=== PATIENT | male | born 1935 | race Caucasian/White ===

== ENCOUNTER 2017-01-03 07:33 | Day surgery (SDC) | payer MEDICARE, BC ==
[2017-01-03] MEDS ORDERED: Midazolam 1 MG/ML 2 ML SDV IV ONE (07:34)
[2017-01-03] MEDS ORDERED: fentaNYL 100 MCG/2 ML SDV IV ONE (07:34)
[2017-01-03] MEDS ORDERED: Ondansetron 4 MG/2 ML SDV IV ONE (07:34)
[2017-01-03] MEDS ORDERED: Lactated Ringers 1,000 ML IV ONE (07:34)
[2017-01-03] MEDS ORDERED: Propofol 200 MG/20 ML SDV IV ONE (07:34)
[2017-01-03] MEDS ORDERED: Glycopyrrolate 0.2 MG/ML 2 ML SDV IV ONE (07:34)
[2017-01-03] MEDS ORDERED: Lidocaine 1% 30 ML SDV INJECT ONE ×2 (07:34→10:17)
[2017-01-03] MEDS ORDERED: Lactated Ringers 1,000 ML IV SCH (08:45)
[2017-01-03] MEDS ORDERED: Lidocaine 1% 30 ML SDV ONE (09:07)
[2017-01-03] MEDS ORDERED: Acetaminophen/HYDROcodone 325-5 MG Tab PO ONE (11:19)
--- NOTE | 2017-01-03 12:15 | OR ---
DATE: 01/03/2017 PREOPERATIVE DIAGNOSIS: Recurrent incisional hernia, right side. POSTOPERATIVE DIAGNOSIS: Recurrent incisional hernia, right side. PROCEDURES: Open repair of recurrent incisional hernia. ANESTHESIA: General. ESTIMATED BLOOD LOSS: None. SPECIMEN: Hernia contents. INDICATION FOR PROCEDURE: This 81-year-old male had a right-sided ventral hernia repair seemed to be a spigelian hernia type repair as it is above the inguinal canal and it seems to be in the lateral portion of this incision. It is palpable and moderately tender. PROCEDURE IN DETAIL: After adequate preparation, an incision was made over the right lower quadrant incision and carried out laterally. This was then dissected down to the external oblique which was opened in direction of its fibers. This exposed a hernia in the posterior rectus sheath area. This was easily dissected free from the surrounding tissues and the hernia sac was opened. The hernia sac currently did not contain any bowel or intraabdominal contents. The hernia sac itself was reduced, and interrupted #1 Prolene sutures were used to close the defect in a transverse fashion. He does have still quite thin muscle layers secondary to his age I guess, and this seemed adequate to close the defect but he does have thin tissues. The external oblique was then closed in a running fashion with Vicryl over the hernia repair. The subcutaneous layer was closed with 2-0 Vicryl and Monocryl were used for the skin. [facility] /[id number]
[2017-01-03] MEDS ORDERED: Sodium Chloride 0.9% 10 ML Syringe FLUSH PRN (13:06)
[2017-01-03] MEDS ORDERED: Meperidine PF 50 MG/ML Syringe IM PRN (14:36)
--- NOTE | 2017-01-03 15:12 | PCM.SN ---
- Free Text/Narrative Note: Will need to keep this patient in the hospital for pain control at least overnight. PO hydrocodone not adequate for pain. Will add IM demerol. Cont PO intake and assist with ambulation.
[2017-01-03] MEDS: Acetaminophen/HYDROcodone 325-10 MG Tab PO PRN (18:28)
[2017-01-04] MEDS: Acetaminophen/HYDROcodone 325-10 MG Tab PO PRN (05:27)
[2017-01-04 08:00] VITALS: BP 122/70
--- NOTE | 2017-01-04 13:03 | PCM.SN ---
- Free Text/Narrative Note: Post op. Pt discharged home this AM after discharge criteria met. no anesthesia concern noted.
--- NOTE | 2017-01-04 13:38 | PCM.SN ---
- Free Text/Narrative Note: Patient feels much better this AM and only rates his pain at 2/10. Wound OK. PO adequate. Ambulates well, Can DC to and will FU as needed. Hydrocodon #30 given for pain.
--- NOTE | 2017-02-04 11:39 | EKG ---
01/03/2017 - GATITO SANDHU - FINDINGS: I reviewed the EKG and agree with the machine's reading. [facility] /[id number]
== END 2017-01-04 10:35 | disposition home or self-care (01) ==
LOC: DL.SDS 07:33 → EDSTATUS 09:00 → DL.MS 13:00 → DL.SDS 01-04 10:35
PROVIDERS: ATTEND Surgery
DX: K43.2 Incisional hernia without obstruction or gangrene (principal)
CPT/HCPCS: 00832; 49565; 93005; 93010; A9270; J2175; J7120; 88302; J2250; J2405; J2704; J3010; J3490

== ENCOUNTER 2018-11-22 09:20 | Emergency (ER) | payer MEDICARE, BC ==
--- NOTE | 2018-11-22 09:50 | EDM.PDOC ---
ED HPI GENERAL MEDICAL PROBLEM - General Chief Complaint: Skin Complaint Stated Complaint: RASH ON HAND Time Seen by Provider: 11/22/18 09:49 Source of Information: Reports: Patient, Old Records, RN, RN Notes Reviewed History Limitations: Reports: No Limitations - History of Present Illness INITIAL COMMENTS - FREE TEXT/NARRATIVE: Pt presents to ER for evaluation of rash to bilateral hands and scrotum. Pt states symptoms initially started three months ago, states they are worse today so he seeks treatment. Pt states he has been using multiple creams at home to help with symptoms. Onset: Unknown/Unsure Duration: Chronic Location: Reports: Upper Extremity, Left, Upper Extremity, Right Quality: Reports: Other (Denies pain) Severity: Moderate Improves with: Reports: None Worsens with: Reports: None Associated Symptoms: Reports: No Other Symptoms - Related Data Allergies Allergy/AdvReac Type Severity Reaction Status Date / Time No Known Allergies Allergy Verified 11/22/18 09:51 Home Meds: Home Meds Hydrocodone/Acetaminophen [Hydrocodon-Acetaminophn 10-325] 1 tab PO Q6HR PRN [History] Lisinopril 1 tab PO DAILY 01/07/15 [History] amLODIPine Besylate [Amlodipine Besylate] 1 tab PO DAILY 01/07/15 [History] Ascorbic Acid 500 mg PO DAILY 09/21/16 [History] Aspirin 162.5 mg PO DAILY 09/21/16 [History] Cholecalciferol (Vitamin D3) [Vitamin D3] 1,000 unit PO DAILY 09/21/16 [History] Flaxseed Oil [Flaxseed] 1,000 mg PO BID 09/21/16 [History] Garlic 1,000 mg PO DAILY 09/21/16 [History] Omeprazole 20 mg PO DAILY 09/21/16 [History] Terazosin HCl [Terazosin] 10 mg PO DAILY 09/21/16 [History] atorvaSTATin [Lipitor] 1 tab PO DAILY 12/31/16 [History] Past Medical History HEENT History: Reports: None Cardiovascular History: Reports: High Cholesterol, Hypertension Respiratory History: Reports: None Gastrointestinal History: Reports: Hiatal Hernia, Other (See Below) Other Gastrointestinal History: r) INGUINAL HERNIA Musculoskeletal History: Reports: Arthritis, Back Pain, Chronic Neurological History: Reports: None Psychiatric History: Reports: None Endocrine/Metabolic History: Reports: None Hematologic History: Reports: None Immunologic History: Reports: None Oncologic (Cancer) History: Reports: None Dermatologic History: Reports: None - Infectious Disease History Infectious Disease History: Reports: Other (See Below) Other Infectious Disease History: UNKNOWN - Past Surgical History Head Surgeries/Procedures: Reports: None HEENT Surgical History: Reports: Adenoidectomy, Tonsillectomy Cardiovascular Surgical History: Reports: None GI Surgical History: Reports: Hernia, Inguinal, Hernia Repair/Other Other Female Surgeries/Procedures: SOME KIND OF PROSTATE PROCEDURE Male Surgical History: Reports: Other (See Below) Social & Family History - Family History Family Medical History: Noncontributory - Caffeine Use Caffeine Use: Reports: Soda, Tea Caffeine Use Comment: 12OZ - Living Situation & Occupation Occupation: Retired ED ROS GENERAL - Review of Systems Review Of Systems: ROS reveals no pertinent complaints other than HPI. ED EXAM, SKIN/RASH Exam: See Below Exam Limited By: No Limitations General Appearance: Alert, No Apparent Distress Eye Exam: Bilateral Eye: Normal Inspection Nose: Normal Inspection Throat/Mouth: Normal Inspection Head: Atraumatic, Normocephalic Neck: Normal Inspection Respiratory/Chest: No Respiratory Distress Extremities: Normal Range of Motion, Normal Capillary Refill Neurological: Alert, No Motor/Sensory Deficits Psychiatric: Normal Mood Skin: Warm, Dry, Rash Location, Skin: Neck, Back, Other (B/L dorsal hands, and scrotum) Characteristics: Other (also has tiny petechial dots at the B/L lower legs and proximal medial thighs consistent with vasculitis, and appears different than the rash on the hands, neck/upper back, and scrotum.) Associated features: No: Warmth, Tenderness, Swelling, Scaling, Inflammation, Crusting, Weeping Course - Vital Signs Last Recorded V/S: Last Vital Signs Temp 99.4 F 11/22/18 09:52 Pulse 72 11/22/18 09:52 Resp 18 11/22/18 09:52 BP 159/79 H 11/22/18 09:52 Pulse Ox 95 11/22/18 09:52 - Orders/Labs/Meds Orders: Active Orders 24 hr Category Date Time Status MRSA CULTURE [MREF] Stat Lab 11/22/18 10:10 Received Departure - Departure Time of Disposition: 10:21 Disposition: Home, Self-Care 01 Condition: Good Clinical Impression: Dermatitis due to unknown cause, Vasculitis limited to skin - Discharge Information *PRESCRIPTION DRUG MONITORING PROGRAM REVIEWED*: No *COPY OF PRESCRIPTION DRUG MONITORING REPORT IN PATIENT TRINA: No Instructions: Rash Forms: ED Department Discharge Additional Instructions: Rx: Prednisone 20mg Rx: Doxycycline 100mg Rx: Zyrtec 10mg Rx: Lotrisone Cream Follow up in clinic in 5 to 7 days. Choose a new primary care provider if you are unhappy with your current doctor. - My Orders Last 24 Hours: My Active Orders 11/22/18 10:10 MRSA CULTURE [MREF] Stat - Assessment/Plan Last 24 Hours: My Active Orders 11/22/18 10:10 MRSA CULTURE [MREF] Stat
[2018-11-22 10:46] VITALS: BP 138/92; PULSE 72
== END 2018-11-22 10:47 | disposition home or self-care (01) ==
LOC: DL.ED 09:20
DX: L30.9 Dermatitis, unspecified (principal); L95.9 Vasculitis limited to the skin, unspecified; I10 Essential (primary) hypertension; E78.00 Pure hypercholesterolemia, unspecified; Z79.82 Long term (current) use of aspirin; Z79.899 Other long term (current) drug therapy
CPT/HCPCS: 87070; 99283

== ENCOUNTER 2019-04-17 08:26 | Emergency (ER) | payer MEDICARE, BC ==
[2019-04-17 08:35] VITALS: BP 150/81; PULSE 73
--- NOTE | 2019-04-17 09:06 | EDM.PDOC ---
<Jonatan Caro - Last Filed: 04/17/19 09:01> ED HPI GENERAL MEDICAL PROBLEM - General Chief Complaint: ENT Problem Stated Complaint: EAR HURTS Time Seen by Provider: 04/17/19 09:01 Source of Information: Reports: Patient, RN, RN Notes Reviewed History Limitations: Reports: No Limitations - History of Present Illness INITIAL COMMENTS - FREE TEXT/NARRATIVE: 83 year old male presents to the ER with complaints of right sided hearing loss and pain. He states his hearing has been diminishing on the right side for 2 weeks now but this morning he cannot hear at all and pain is 10/10. He has tried to clean it out himself and noticed some blood when attempting to clean it. He denies fever, headaches, sinus tenderness, or any other symptoms. Patient has not been to the clinic. Onset: Today Duration: Constant Location: Reports: Head (rigth ear) Quality: Reports: Ache Severity: Mild Improves with: Reports: None Worsens with: Reports: None Associated Symptoms: Reports: No Other Symptoms right ear Pain Score (Numeric/FACES): 10 - Related Data Allergies Allergy/AdvReac Type Severity Reaction Status Date / Time No Known Allergies Allergy Verified 04/17/19 08:42 Home Meds: Home Meds Hydrocodone/Acetaminophen [Hydrocodon-Acetaminophn 10-325] 1 tab PO Q6HR PRN [History] Lisinopril 1 tab PO DAILY 01/07/15 [History] amLODIPine Besylate [Amlodipine Besylate] 1 tab PO DAILY 01/07/15 [History] Ascorbic Acid 500 mg PO DAILY 09/21/16 [History] Aspirin 162.5 mg PO DAILY 09/21/16 [History] Cholecalciferol (Vitamin D3) [Vitamin D3] 1,000 unit PO DAILY 09/21/16 [History] Flaxseed Oil [Flaxseed] 1,000 mg PO BID 09/21/16 [History] Garlic 1,000 mg PO DAILY 09/21/16 [History] Omeprazole 20 mg PO DAILY 09/21/16 [History] Terazosin HCl [Terazosin] 10 mg PO DAILY 09/21/16 [History] atorvaSTATin [Lipitor] 1 tab PO DAILY 12/31/16 [History] Past Medical History HEENT History: Reports: None Cardiovascular History: Reports: High Cholesterol, Hypertension Respiratory History: Reports: None Gastrointestinal History: Reports: Hiatal Hernia, Other (See Below) Other Gastrointestinal History: r) INGUINAL HERNIA Musculoskeletal History: Reports: Arthritis, Back Pain, Chronic Neurological History: Reports: None Psychiatric History: Reports: None Endocrine/Metabolic History: Reports: None Hematologic History: Reports: None Immunologic History: Reports: None Oncologic (Cancer) History: Reports: None Dermatologic History: Reports: None - Infectious Disease History Infectious Disease History: Reports: Other (See Below) Other Infectious Disease History: UNKNOWN - Past Surgical History Head Surgeries/Procedures: Reports: None HEENT Surgical History: Reports: Adenoidectomy, Tonsillectomy Cardiovascular Surgical History: Reports: None GI Surgical History: Reports: Hernia, Inguinal, Hernia Repair/Other Male Surgical History: Reports: Other (See Below) Social & Family History - Family History Family Medical History: Noncontributory - Tobacco Use Smoking Status *Q: Never Smoker Second Hand Smoke Exposure: No - Caffeine Use Caffeine Use: Reports: Coffee Caffeine Use Comment: 12OZ - Recreational Drug Use Recreational Drug Use: No - Living Situation & Occupation Occupation: Retired ED ROS ENT - Review of Systems Review Of Systems: Comprehensive ROS is negative, except as noted in HPI. ED EXAM, ENT - Physical Exam Exam: See Below Exam Limited By: No Limitations General Appearance: Alert, WD/WN, No Apparent Distress Eye Exam: Bilateral Eye: EOMI, Normal Inspection, PERRL Ears: Normal External Exam, Hearing Loss (bilateral), Canal Discharge (right sided), Other (right sided tragus tenderness with palpation). No: TM Perforation, Cerumen Impaction Nose: Normal Inspection, Normal Mucousa, No Blood Mouth/Throat: Normal Inspection, Normal Gums, Normal Lips, Normal Oropharynx, Normal Teeth Head: Atraumatic, Normocephalic Neck: Normal Inspection, Supple, Non-Tender, Full Range of Motion Respiratory/Chest: No Respiratory Distress, Lungs Clear, Normal Breath Sounds, No Accessory Muscle Use, Chest Non-Tender Cardiovascular: Normal Peripheral Pulses, Regular Rate, Rhythm, No Edema, No Gallop, No JVD, No Murmur, No Rub Course - Vital Signs Last Recorded V/S: Last Vital Signs Temp 37.4 C 04/17/19 08:33 Pulse 73 04/17/19 08:33 Resp 18 04/17/19 08:33 BP 150/81 H 04/17/19 08:33 Pulse Ox 96 04/17/19 08:33 Departure - Departure Time of Disposition: 09:07 Disposition: Home, Self-Care 01 Condition: Good Clinical Impression: Otitis externa Qualifiers: Otitis externa type: unspecified type Chronicity: acute Laterality: right Qualified Code(s): H60.501 - Unspecified acute noninfective otitis externa, right ear - Discharge Information *PRESCRIPTION DRUG MONITORING PROGRAM REVIEWED*: Yes *COPY OF PRESCRIPTION DRUG MONITORING REPORT IN PATIENT TRINA: Yes Instructions: Otitis Externa, [id number], Ear Drops, Adult, [id number] Forms: ED Department Discharge Additional Instructions: Rx: Cipro/Dex Use the ear drops as prescribed for relief of ear infection. Use ibuprofen and tylenol for pain and inflammation. If symptoms do not resolve or pain gets worse , follow-up in clinic with primary care provider. Sepsis Event Note - Evaluation Sepsis Screening Result: No Definite Risk - Focused Exam Vital Signs: Vital Signs Temp Pulse Resp BP Pulse Ox 04/17/19 08:33 37.4 C 73 18 150/81 H 96 Date Exam was Performed: 04/17/19 Time Exam was Performed: 09:01 <Bob Parsons - Last Filed: 04/17/19 09:11> Course - Re-Assessments/Exams Free Text/Narrative Re-Assessment/Exam: 04/17/19 09:11 I have examined the patient. I have discussed findings and treatment plan with the PA student. I agree with the assessment and plan in the following students note. Sepsis Event Note - Focused Exam Date Exam was Performed: 04/17/19 Time Exam was Performed: 09:11
== END 2019-04-17 09:28 | disposition home or self-care (01) ==
LOC: DL.ED 08:26
DX: H60.501 Unspecified acute noninfective otitis externa, right ear (principal); E78.00 Pure hypercholesterolemia, unspecified; I10 Essential (primary) hypertension; M19.90 Unspecified osteoarthritis, unspecified site; Z79.82 Long term (current) use of aspirin; Z79.899 Other long term (current) drug therapy
CPT/HCPCS: 99283

== ENCOUNTER 2019-04-19 10:21 | Emergency (ER) | payer MEDICARE, BC ==
[2019-04-19 10:32] VITALS: BP 172/91; PULSE 86
--- NOTE | 2019-04-19 10:52 | EDM.PDOC ---
ED HPI GENERAL MEDICAL PROBLEM - General Chief Complaint: ENT Problem Stated Complaint: RIGHT EAR PLUGGED Time Seen by Provider: 04/19/19 10:45 Source of Information: Reports: Patient History Limitations: Reports: No Limitations - History of Present Illness INITIAL COMMENTS - FREE TEXT/NARRATIVE: This 83 yo male patient reports to the ED with increased difficulties hearing out of his right ear. The patient was seen in the ED 2 days ago and given a prescription for an antibiotic with steroids in it. The patient did not fill the prescription due to the cost of the medication. The patient continues to state that the only thing that will make him feel better is hydrocodone. The patient was advised the pain medication will only cover up the symptoms, but not treat the problem. The patient continued to request pain medications. Onset: Gradual Duration: Day(s):, Constant Location: Reports: Head (right ear drainage due to otitis externa) Quality: Reports: Dull Severity: Moderate Improves with: Reports: None Worsens with: Reports: None Context: Reports: Other Associated Symptoms: Reports: No Other Symptoms - Related Data Allergies Allergy/AdvReac Type Severity Reaction Status Date / Time No Known Allergies Allergy Verified 04/17/19 08:42 Home Meds: Home Meds Hydrocodone/Acetaminophen [Hydrocodon-Acetaminophn 10-325] 1 tab PO Q6HR PRN [History] Lisinopril 1 tab PO DAILY 01/07/15 [History] amLODIPine Besylate [Amlodipine Besylate] 1 tab PO DAILY 01/07/15 [History] Ascorbic Acid 500 mg PO DAILY 09/21/16 [History] Aspirin 162.5 mg PO DAILY 09/21/16 [History] Cholecalciferol (Vitamin D3) [Vitamin D3] 1,000 unit PO DAILY 09/21/16 [History] Flaxseed Oil [Flaxseed] 1,000 mg PO BID 09/21/16 [History] Garlic 1,000 mg PO DAILY 09/21/16 [History] Omeprazole 20 mg PO DAILY 09/21/16 [History] Terazosin HCl [Terazosin] 10 mg PO DAILY 09/21/16 [History] atorvaSTATin [Lipitor] 1 tab PO DAILY 12/31/16 [History] Past Medical History HEENT History: Reports: Impaired Vision Cardiovascular History: Reports: High Cholesterol, Hypertension Respiratory History: Reports: None Gastrointestinal History: Reports: Hiatal Hernia, Other (See Below) Other Gastrointestinal History: r) INGUINAL HERNIA Musculoskeletal History: Reports: Arthritis, Back Pain, Chronic Neurological History: Reports: None Psychiatric History: Reports: None Endocrine/Metabolic History: Reports: None Hematologic History: Reports: None Immunologic History: Reports: None Oncologic (Cancer) History: Reports: None Dermatologic History: Reports: None - Infectious Disease History Infectious Disease History: Reports: Other (See Below) Other Infectious Disease History: UNKNOWN - Past Surgical History Head Surgeries/Procedures: Reports: None HEENT Surgical History: Reports: Adenoidectomy, Tonsillectomy Cardiovascular Surgical History: Reports: None GI Surgical History: Reports: Hernia, Inguinal, Hernia Repair/Other Male Surgical History: Reports: Other (See Below) Social & Family History - Family History Family Medical History: Noncontributory - Tobacco Use Smoking Status *Q: Never Smoker Second Hand Smoke Exposure: No - Caffeine Use Caffeine Use: Reports: None Caffeine Use Comment: 12OZ - Recreational Drug Use Recreational Drug Use: No - Living Situation & Occupation Occupation: Retired ED ROS ENT - Review of Systems Review Of Systems: Comprehensive ROS is negative, except as noted in HPI. ED EXAM, ENT - Physical Exam Exam: See Below Exam Limited By: No Limitations General Appearance: Alert, WD/WN, Anxious, Mild Distress Eye Exam: Bilateral Eye: EOMI, Normal Inspection, PERRL Ears: Normal TMs, Canal Discharge (right sided), Canal Swelling (right side) Nose: Normal Inspection, Normal Mucousa, No Blood Mouth/Throat: Normal Inspection, Normal Gums, Normal Lips, Normal Oropharynx, Normal Teeth Head: Atraumatic, Normocephalic Neck: Normal Inspection, Supple, Non-Tender, Full Range of Motion Respiratory/Chest: No Respiratory Distress, Lungs Clear, Normal Breath Sounds, No Accessory Muscle Use, Chest Non-Tender Cardiovascular: Normal Peripheral Pulses, Regular Rate, Rhythm, No Edema, No Gallop, No JVD, No Murmur, No Rub GI/Abdominal: Normal Bowel Sounds, Soft, Non-Tender, No Organomegaly, No Distention, No Abnormal Bruit, No Mass (Male) Exam: Deferred Rectal (Males) Exam: Deferred Back: Normal Inspection, Full Range of Motion Extremities: Normal Inspection, Normal Range of Motion, Non-Tender, No Pedal Edema, Normal Capillary Refill Neurological: Alert, Oriented, CN II-XII Intact, Normal Cognition, Normal Gait, Normal Reflexes, No Motor/Sensory Deficits Psychiatric: Normal Affect, Normal Mood Skin: Warm, Dry, Intact, Normal Color, No Rash Lymphatic: No Adenopathy Course - Vital Signs Last Recorded V/S: Last Vital Signs Temp 36.7 C 04/19/19 10:27 Pulse 86 04/19/19 10:27 Resp 16 04/19/19 10:27 BP 172/91 H 04/19/19 10:27 Pulse Ox 97 04/19/19 10:27 Departure - Departure Time of Disposition: 10:49 Disposition: Home, Self-Care 01 Condition: Fair Clinical Impression: Right otitis externa Qualifiers: Otitis externa type: diffuse Chronicity: acute Qualified Code(s): H60.311 - Diffuse otitis externa, right ear - Discharge Information *PRESCRIPTION DRUG MONITORING PROGRAM REVIEWED*: Not Applicable *COPY OF PRESCRIPTION DRUG MONITORING REPORT IN PATIENT TRINA: Not Applicable Instructions: Otitis Externa, [id number], Ear Drops, Adult, [id number] Forms: ED Department Discharge Care Plan Goals: The patient was advised of the examination results during the visit. The patient was encouraged to fill the prescription that was written for him two days ago. The patient reports that he could not afford the medication. The patient was encouraged to talk to his pharmacy in order to look for more affordable options. If the patient has any additional symptoms or concerns, the patient should either return to the emergency department or visit his primary care facility. Sepsis Event Note - Evaluation Sepsis Screening Result: No Definite Risk - Focused Exam Vital Signs: Vital Signs Temp Pulse Resp BP Pulse Ox 04/19/19 10:27 36.7 C 86 16 172/91 H 97 Date Exam was Performed: 04/19/19 Time Exam was Performed: 10:52
== END 2019-04-19 10:54 | disposition home or self-care (01) ==
LOC: DL.ED 10:21
DX: H60.311 Diffuse otitis externa, right ear (principal); I10 Essential (primary) hypertension; E78.00 Pure hypercholesterolemia, unspecified; Z79.82 Long term (current) use of aspirin; Z79.899 Other long term (current) drug therapy
CPT/HCPCS: 99282; 99283

== ENCOUNTER 2019-07-29 01:43 | Emergency (ER) | payer MEDICARE, BC ==
--- NOTE | 2019-07-29 02:03 | EDM.PDOC ---
ED HPI GENERAL MEDICAL PROBLEM - General Chief Complaint: General Stated Complaint: AMBULANCE Time Seen by Provider: 07/29/19 01:56 Source of Information: Reports: Patient, EMS History Limitations: Reports: No Limitations - History of Present Illness INITIAL COMMENTS - FREE TEXT/NARRATIVE: EMS arrived pt sitting in a chair c/o unable to get back up. pt states got up to pee then became light headed & dizzy and unable to balance so sat down quickly then crawl to bathroom. denies falling. denies vertigo. states he never any problem while he was taking hydrocodone which nobody is willing to give him. states he has been taking this for 18 years. states it helps the pain in his left nostril area which acts up everytime he eats and is unhappy nobody is willing to give him any. denies CP/SOB/CORONEL. - Related Data Allergies Allergy/AdvReac Type Severity Reaction Status Date / Time No Known Allergies Allergy Verified 07/29/19 02:05 Home Meds: Home Meds Hydrocodone/Acetaminophen [Hydrocodone-Acetamin 10-325 mg] 1 tab PO Q6HR PRN [History] Lisinopril 1 tab PO DAILY 01/07/15 [History] amLODIPine Besylate [Amlodipine Besylate] 1 tab PO DAILY 01/07/15 [History] Ascorbic Acid 500 mg PO DAILY 09/21/16 [History] Aspirin 162.5 mg PO DAILY 09/21/16 [History] Cholecalciferol (Vitamin D3) [Vitamin D3] 1,000 unit PO DAILY 09/21/16 [History] Flaxseed Oil [Flaxseed] 1,000 mg PO BID 09/21/16 [History] Garlic 1,000 mg PO DAILY 09/21/16 [History] Omeprazole 20 mg PO DAILY 09/21/16 [History] Terazosin HCl [Terazosin] 10 mg PO DAILY 09/21/16 [History] atorvaSTATin [Lipitor] 1 tab PO DAILY 12/31/16 [History] Past Medical History HEENT History: Reports: Impaired Vision Cardiovascular History: Reports: High Cholesterol, Hypertension Respiratory History: Reports: None Gastrointestinal History: Reports: Hiatal Hernia, Other (See Below) Other Gastrointestinal History: r) INGUINAL HERNIA Musculoskeletal History: Reports: Arthritis, Back Pain, Chronic Neurological History: Reports: None Psychiatric History: Reports: None Endocrine/Metabolic History: Reports: None Hematologic History: Reports: None Immunologic History: Reports: None Oncologic (Cancer) History: Reports: None Dermatologic History: Reports: None - Infectious Disease History Infectious Disease History: Reports: Other (See Below) Other Infectious Disease History: UNKNOWN - Past Surgical History Head Surgeries/Procedures: Reports: None HEENT Surgical History: Reports: Adenoidectomy, Tonsillectomy Cardiovascular Surgical History: Reports: None GI Surgical History: Reports: Hernia, Inguinal, Hernia Repair/Other Male Surgical History: Reports: Other (See Below) Social & Family History - Family History Family Medical History: Noncontributory - Caffeine Use Caffeine Use: Reports: None Caffeine Use Comment: 12OZ - Living Situation & Occupation Occupation: Retired ED ROS GENERAL - Review of Systems Review Of Systems: Comprehensive ROS is negative, except as noted in HPI. ED EXAM, GENERAL - Physical Exam Exam: See Below Exam Limited By: No Limitations General Appearance: Alert, WD/WN, No Apparent Distress, Other (talkative) Eye Exam: Bilateral Eye: PERRL (pupils ER @ 4mm) Ears: Hearing Grossly Normal Throat/Mouth: Normal Voice, No Airway Compromise Head: Atraumatic Neck: Non-Tender, Full Range of Motion Respiratory/Chest: No Respiratory Distress Cardiovascular: Regular Rate, Rhythm GI/Abdominal: Soft, Non-Tender Neurological: Alert, Oriented, Normal Cognition, No Motor/Sensory Deficits Psychiatric: Normal Affect, Normal Mood Skin Exam: Warm, Dry, Normal Color Lymphatic: No Adenopathy Course - Vital Signs Last Recorded V/S: Last Vital Signs Temp 36.1 C 07/29/19 02:21 Pulse 52 L 07/29/19 02:21 Resp 18 07/29/19 02:21 BP 172/90 H 07/29/19 02:21 Pulse Ox 95 07/29/19 02:21 Orthostatic Blood Pressure [ 197/99 Standing] Orthostatic Blood Pressure [ 189/102 Sitting] Orthostatic Blood Pressure [ 183/96 Supine] - Orders/Labs/Meds Orders: Active Orders 24 hr Category Date Time Status EKG 12 Lead [EKG Documentation Completion] [RC] STAT Care 07/29/19 01:55 Active CORONAVIRUS COVID-19 PCR PHL Stat Lab 07/29/19 03:30 Ordered Labs: Laboratory Tests 07/29/19 07/29/19 07/29/19 Range/Units 02:02 02:07 02:07 WBC 4.6 L (5.0-10.0) 10^3/uL RBC 4.91 (4.6-6.2) 10^6/uL Hgb 15.0 D (14.0-18.0) g/dL Hct 45.4 (40.0-54.0) % MCV 92.5 (80-100) fL MCH 30.5 (27.0-34.0) pg MCHC 33.0 (33.0-35.0) g/dL Plt Count 258 (150-450) 10^3/uL Neut % (Auto) 68.5 (42.2-75.2) % Lymph % (Auto) 20.7 (20.5-50.1) % [place] % (Auto) 8.9 H (2-8) % Eos % (Auto) 1.7 (1.0-3.0) % Baso % (Auto) 0.2 (0.0-1.0) % Sodium 143 (136-145) mmol/L Potassium 3.6 (3.5-5.1) mmol/L Chloride 104 (98-107) mmol/L Carbon Dioxide 32 (21-32) mmol/L Anion Gap 10.6 (7-13) mEq/L BUN 18 (7-18) mg/dL Creatinine 1.25 (0.70-1.30) mg/dL Est Cr Clr Drug Dosing 44.61 mL/min Estimated GFR (MDRD) 55 BUN/Creatinine Ratio 14.4 (No establ ref range) Glucose 110 H (74-99) mg/dL Calcium 8.2 L (8.5-10.1) mg/dL Total Bilirubin 0.8 (0.2-1.0) mg/dL AST 25 (15-37) U/L ALT 35 (16-63) U/L Alkaline Phosphatase 62 (46-116) U/L Troponin I < 0.017 (0.000-0.056) ng/mL B-Natriuretic Peptide 171 H (0-100) pg/ml Total Protein 6.5 (6.4-8.2) g/dL Albumin 3.9 (3.4-5.0) g/dL Globulin 2.6 Albumin/Globulin Ratio 1.5 Urine Color Yellow (YELLOW) Urine Appearance Clear (CLEAR) Urine pH 7.0 (5.0-9.0) Ur Specific [place] 1.020 (1.005-1.030) Urine Protein Negative (NEGATIVE) Urine Glucose (UA) Negative (NEGATIVE) Urine Ketones Negative (NEGATIVE) Urine Occult Blood Negative (NEGATIVE) Urine Nitrite Negative (NEGATIVE) Urine Bilirubin Negative (NEGATIVE) Urine Urobilinogen 0.2 (0.2-1.0) mg/dL Ur Leukocyte Esterase Negative (NEGATIVE) - Re-Assessments/Exams Free Text/Narrative Re-Assessment/Exam: 07/29/19 03:[address] Montgomery @ who kindly accepted pt. Departure - Departure Time of Disposition: 03:32 Disposition: DC/Tfer to Acute Hospital 02 Condition: Good Clinical Impression: Light headedness, Orthostatic dizziness CAD (coronary artery disease) Qualifiers: Coronary Disease-Associated Artery/Lesion type: unspecified vessel or lesion type [place] vs. transplanted heart: [place] heart Associated angina: without angina Qualified Code(s): I25.10 - Atherosclerotic heart disease of [place] coronary artery without angina pectoris - Discharge Information Forms: Interfacility Transfer [facility] Sepsis Event Note - Evaluation Sepsis Screening Result: No Definite Risk - Focused Exam Vital Signs: Vital Signs Temp Pulse Resp BP Pulse Ox 07/29/19 02:21 36.1 C 52 L 18 172/90 H 95 07/29/19 01:49 36.1 C 60 20 193/93 H 97 Date Exam was Performed: 07/29/19 Time Exam was Performed: 03:32 - My Orders Last 24 Hours: My Active Orders 07/29/19 01:55 EKG 12 Lead [EKG Documentation Completion] [RC] STAT 07/29/19 03:30 CORONAVIRUS COVID-19 PCR PHL Stat - Assessment/Plan Last 24 Hours: My Active Orders 07/29/19 01:55 EKG 12 Lead [EKG Documentation Completion] [RC] STAT 07/29/19 03:30 CORONAVIRUS COVID-19 PCR PHL Stat
[2019-07-29 02:22] VITALS: BP 172/90; PULSE 52
[2019-07-29 02:38] LABS: ANION GAP 10.6 mEq/L (7-13); CHLORIDE,CL 104 mmol/L (98-107); SODIUM,NA 143 mmol/L (136-145)
== END 2019-07-29 04:27 ==
LOC: DL.ED 01:43
DX: I25.10 Atherosclerotic heart disease of native coronary artery without angina pectoris (principal); R42 Dizziness and giddiness; I10 Essential (primary) hypertension; E78.00 Pure hypercholesterolemia, unspecified; M19.90 Unspecified osteoarthritis, unspecified site; Z20.828 Contact with and (suspected) exposure to other viral communicable diseases; Z79.82 Long term (current) use of aspirin; Z79.899 Other long term (current) drug therapy
CPT/HCPCS: 36415; 80053; 81003; 83880; 84484; 85025; 93005; 99284; 99285-25; U0002

== ENCOUNTER 2019-08-04 13:28 | Emergency (ER) | payer MEDICARE, BC ==
[2019-08-04 14:44] VITALS: PULSE 64
[2019-08-04 14:54] VITALS: BP 172/79
== END 2019-08-04 15:06 | disposition left against medical advice (07) ==
LOC: DL.ED 13:28
DX: Z53.21 Procedure and treatment not carried out due to patient leaving prior to being seen by health care provider (principal)

== ENCOUNTER 2022-12-07 10:00 | Emergency (ER) | payer MEDICARE, BC ==
[~2022-12-07 10:00] MED LIST: Sodium Chloride 0.9% 10 ML Syringe FLUSH PRN; Sodium Chloride 0.9% 500 ML IV SCH
[2022-12-07 10:09] VITALS: BP 116/97; PULSE 58
[2022-12-07 10:15] LABS: HEMATOCRIT 40.3 % (40.0-54.0); HEMOGLOBIN 13.4 g/dL (14.0-18.0); MEAN CORPUSCULAR HEMOGLOBIN 31.5 pg (27.0-34.0); MEAN CORPUSCULAR HGB CONC 33.3 g/dL (33.0-35.0); MEAN CORPUSCULAR VOLUME 94.6 fL (80-100); PLATELET COUNT,PLT 182 10^3/uL (150-450); RED BLOOD CELL COUNT 4.26 10^6/uL (4.6-6.2); WHITE BLOOD CELL COUNT,WBC 5.7 10^3/uL (5.0-10.0)
[2022-12-07 10:17] LABS: BASOPHILS PERCENT AUTO 0.2 % (0.0-1.0); LYMPHOCYTES PERCENT AUTO 3.8 % (20.5-50.1); MONOCYTES PERCENT AUTO 5.8 % (2-8); NEUTROPHILS PERCENT AUTO 90.2 % (42.2-75.2)
[2022-12-07 10:30] LABS: LYMPHOCYTES PERCENT MAN 7 % (20-50); MONOCYTES PERCENT MAN 3 % (2-8); SEG NEUTROPHILS PERCENT MAN 90 % (42-75)
[2022-12-07 10:32] LABS: A/G RATIO 1.1; ALBUMIN 3.5 g/dL (3.4-5.0); BILIRUBIN TOTAL 0.9 mg/dL (0.2-1.0); BLOOD UREA NITROGEN,BUN 20 mg/dL (7-18); BUN/CREATININE RATIO 13.7 (No establ ref range); CALCIUM 8.7 mg/dL (8.5-10.1); CARBON DIOXIDE,CO2 27 mmol/L (21-32); CHLORIDE,CL 103 mmol/L (98-107); CREATININE 1.46 mg/dL (0.70-1.30); GLUCOSE RANDOM 140 mg/dL (70-99); PROTEIN TOTAL,TP 6.6 g/dL (6.4-8.2); SODIUM,NA 140 mmol/L (136-145)
[2022-12-07 10:33] LABS: ALANINE AMINOTRANSFERASE,ALT 24 U/L (16-63); ALKALINE PHOSPHATASE 68 U/L (46-116); ASPARTATE AMNIOTRANSFERASE,AST 22 U/L (15-37); ESTIMATED GFR 46 mL/min (>=60)
[2022-12-07 10:37] LABS: LACTIC ACID 2.9 mmol/L (0.4-2.0)
[2022-12-07 11:34] LABS: PROTHROMBIN TIME 10.6 SEC (9.0-12.0)
[2022-12-07 11:59] LABS: APPEARANCE,URINE SLIGHTLY CLOUDY (CLEAR); BILIRUBIN,URINE NEGATIVE (NEGATIVE); COLOR,URINE YELLOW (YELLOW); GLUCOSE,URINE NEGATIVE (NEGATIVE); KETONES,URINE NEGATIVE (NEGATIVE); LEUKOCYTE ESTERASE,URINE TRACE (NEGATIVE); NITRITE,URINE NEGATIVE (NEGATIVE); OCCULT BLOOD,URINE MODERATE (NEGATIVE); PROTEIN,URINE 30 (NEGATIVE); UROBILINOGEN,URINE 0.2 mg/dL (0.2-1.0)
[2022-12-07 12:07] LABS: WBC,URINE 20-30 /HPF (0-5/HPF)
[2022-12-07 12:08] LABS: BACTERIA,URINE MANY /HPF (0-FEW/HPF); EPITHELIAL CELLS,URINE NOT SEEN /HPF (NOT SEEN)
[2022-12-07] MEDS ORDERED: Morphine 2 MG/ML SYRINGE IVPUSH ONE (13:52)
== END 2022-12-07 14:34 ==
LOC: DL.ED 10:00
DX: S72.002A Fracture of unspecified part of neck of left femur, initial encounter for closed fracture (principal); E78.00 Pure hypercholesterolemia, unspecified; I10 Essential (primary) hypertension; Z79.82 Long term (current) use of aspirin; Z79.899 Other long term (current) drug therapy; W19.XXXA Unspecified fall, initial encounter; Y92.129 Unspecified place in nursing home as the place of occurrence of the external cause
CPT/HCPCS: 36415; 51702; 73502; 73700; 80053; 81001; 83605; 85025; 85610; 87086; 87088; 87186; 96361; 96374; 99285; J2270; J7040; J3490